=== PATIENT | male | born 1960 | race Caucasian/White ===

== ENCOUNTER → 2017-09-17 | Outpatient (CLI) | payer BC, OTHER ==
[~2017-09-17] MED LIST: ALEN70; ASCO500; ASCO500 PO; ASPI81CH PO; BACL20; BACL20 PO; CALCAVITD PO; CALGLU500; CHOL10002 PO; CLOBET30L TOP; CLOP75 PO; CRANBERRY PO; CVS DISPOSABLE399 ML; CVS DISPOSABLE399 ML PR; Cranberry405 MG PO; DESO.05TCA TOP; ELIQUIS5 MG PO; FLUT.05NI; Flonase 0.05% N16 GM; Flurbiprofen100 MG PO; GABA100 PO; GENTEAL BOTHEYES; GLUCHON; GLUCHON PO; GLUTAMINE; HYDACE5 PO; IBUP400 PO; IPRA.03NI; IPRA.06NI; IPRAOI INH; LEVFLO500 PO; MAGCHL64ER; MANDELAMINE; MANDELAMINE PO; METO10; METO10 PO; MOME.1TC TOP; MOMENI; MULVITMIND; MULVITMIND PO; Multiple Vitam1 EAC1 PO; OMEP20ER PO; OXYB5ER; OXYB5ER PO; PROM25 PO; Protopic100 G1 TP; RANI150 PO; SIME80CH PO; TACROLIMUS TOP; VIT B COMPLEX PO; VIT C PO; [UNRECOGNIZED DRUG - OTHER] PO
[2017-09-17 18:24] LABS: Protein, Urine Random 13.3 mg/dL (0.0-11.9)
[2017-09-17 18:33] LABS: Creatinine, Urine Random 30.9 mg/dL (27.00-270.00)
== END | disposition home or self-care (01) ==
LOC: OLS 15:40 → LAB SHORT 15:40
PROVIDERS: Internal Medicine
DX: I10 Essential (primary) hypertension (principal)
CPT/HCPCS: 82570; 84156

== ENCOUNTER 2018-04-01 16:39 | Inpatient (IN) | payer BC, OTHER ==
[~2018-04-01] VITALS: Ht 175.3 cm; Wt 86.4 kg
[~2018-04-01 16:39] MED LIST changes: +ONE DAILY COMP1 EACH PO; -RANI150 PO; +Zantac150 MG PO
[2018-04-01 17:08] LABS: Source, Urine Catheter
[2018-04-01 17:14] LABS: BASOPHILS ABSOLUTE AUTO 0.03 K/mm3 (0.00-0.23); BASOPHILS PERCENT AUTO 0 % (0-2); EOSINOPHILS PERCENT AUTO 0 % (0-6); Hematocrit 39.2 % (37.0-53.0); Hemoglobin 13.2 g/dL (13.5-17.5); IMMATURE GRAN ABSOLUTE AUTO 0.06 K/mm3 (0.00-0.10); IMMATURE GRAN PERCENT AUTO 1 % (0-1); LYMPHOCYTES ABSOLUTE AUTO 0.14 K/mm3 (0.84-5.20); LYMPHOCYTES PERCENT AUTO 2 % (21-46); MONOCYTES ABSOLUTE AUTO 0.26 K/mm3 (0.16-1.47); MONOCYTES PERCENT AUTO 3 % (4-13); Mean Corpuscular HGB 30.9 pg (26.0-34.0); Mean Corpuscular HGB Conc 33.7 g/dL (31.5-36.5); Mean Corpuscular Volume 92 fL (80-100); NEUTROPHILS ABSOLUTE AUTO 8.42 K/mm3 (1.96-9.15); NEUTROPHILS PERCENT AUTO 95 % (41-73); Platelet Count 132 K/mm3 (150-400); Red Blood Cell Count 4.27 M/mm3 (4.30-5.90); White Blood Cell Count 8.91 K/mm3 (4.00-11.30)
[2018-04-01 17:14] LABS: Appearance, Urine Cloudy (Clear); Bilirubin, Urine Neg (Neg); Blood, Urine 5+ (Neg); Color, Urine Yellow (P-Yellow); Glucose Qualitative, Urine Neg (Neg); Ketones, Urine Neg (Neg); Leukocyte Esterase, Urine 3+ (Neg); Nitrite, Urine Neg (Neg); Protein, Urine 3+ (Neg); Urobilinogen, Urine NORM (Normal)
[2018-04-01 17:26] LABS: Red Blood Cells, Urine 25-50 /hpf (0-2); White Blood Cells, Urine 50-100 /hpf (0-5)
[2018-04-01 17:27] LABS: Bacteria Many /hpf; Hyaline Casts 0-2 /lpf (0-2); Squamous Epithelial Cells Not Seen /hpf (Few)
[2018-04-01 17:33] LABS: Alanine Aminotransfer (ALT/SGP 76 U/L (12-78); Albumin, Blood 3.7 g/dL (3.4-5.0); Albumin/Globulin Ratio 1.1 (0.8-1.8); Alk Phos 102 U/L (50-136); Anion Gap 8 mmol/L (6-16); Aspartate Aminotrans (AST/SGOT 66 U/L (12-37); Bilirubin, Total 0.9 mg/dL (0.1-1.0); Blood Urea Nitrogen 21 mg/dL (8-24); Bun/Creatinine Ratio 26.3 (12.0-20.0); CO2, Blood 25 mmol/L (21-32); Chloride, Blood 101 mmol/L (98-108); Globulin, Blood 3.5 g/dL (2.2-4.0); Glomerular Filtration Rate >60 (60-); Glucose, Blood 121 mg/dL (70-99); Potassium, Blood 4.4 mmol/L (3.5-5.5); Sodium, Blood 134 mmol/L (136-145); Total Protein, Blood 7.2 g/dL (6.4-8.2)
[2018-04-02 04:52] LABS: BASOPHILS ABSOLUTE AUTO 0.02 K/mm3 (0.00-0.23); BASOPHILS PERCENT AUTO 0 % (0-2); EOSINOPHILS ABSOLUTE AUTO 0.01 K/mm3 (0.00-0.68); EOSINOPHILS PERCENT AUTO 0 % (0-6); Hematocrit 36.7 % (37.0-53.0); IMMATURE GRAN ABSOLUTE AUTO 0.03 K/mm3 (0.00-0.10); IMMATURE GRAN PERCENT AUTO 1 % (0-1); LYMPHOCYTES ABSOLUTE AUTO 0.36 K/mm3 (0.84-5.20); LYMPHOCYTES PERCENT AUTO 7 % (21-46); MONOCYTES ABSOLUTE AUTO 0.38 K/mm3 (0.16-1.47); MONOCYTES PERCENT AUTO 7 % (4-13); Mean Corpuscular HGB 29.9 pg (26.0-34.0); Mean Corpuscular HGB Conc 32.7 g/dL (31.5-36.5); Mean Corpuscular Volume 91 fL (80-100); Mean Platelet Volume 10.2 fL (9.1-12.4); NEUTROPHILS ABSOLUTE AUTO 4.64 K/mm3 (1.96-9.15); NEUTROPHILS PERCENT AUTO 85 % (41-73); Platelet Count 133 K/mm3 (150-400); RDW Coefficient Variation 13.1 % (11.7-14.2); RDW Standard Deviation 43.9 fL (35.1-46.3); Red Blood Cell Count 4.02 M/mm3 (4.30-5.90); White Blood Cell Count 5.44 K/mm3 (4.00-11.30)
[2018-04-02 05:05] LABS: Anion Gap 9 mmol/L (6-16); Blood Urea Nitrogen 16 mg/dL (8-24); Bun/Creatinine Ratio 26.8 (12.0-20.0); CO2, Blood 23 mmol/L (21-32); Calcium, Blood 8.2 mg/dL (8.5-10.1); Chloride, Blood 107 mmol/L (98-108); Glomerular Filtration Rate >60 (60-); Glucose, Blood 111 mg/dL (70-99); Potassium, Blood 3.7 mmol/L (3.5-5.5); Sodium, Blood 139 mmol/L (136-145)
[2018-04-04 05:34] LABS: Vancomycin, Trough 15.3 ug/mL (5.0-10.0)
[2018-04-04 13:06] LABS: Source, Urine Catheter
[2018-04-04 13:21] LABS: Bilirubin, Urine Neg (Neg); Blood, Urine 4+ (Neg); Glucose Qualitative, Urine Neg (Neg); Ketones, Urine Neg (Neg); Leukocyte Esterase, Urine 3+ (Neg); Nitrite, Urine Neg (Neg); Protein, Urine 3+ (Neg); Urobilinogen, Urine NORM (Normal)
[2018-04-04 13:42] LABS: Appearance, Urine Cloudy (Clear); Color, Urine Yellow (P-Yellow)
[2018-04-04 13:43] LABS: White Blood Cells, Urine 25-50 /hpf (0-5)
[2018-04-04 13:44] LABS: Bacteria Few /hpf; Squamous Epithelial Cells Few /hpf (Few)
[2018-04-05] MEDS ORDERED: ASPI81CH PO (10:43)
[2018-04-05] MEDS ORDERED: Tylenol325 MG PO (10:44)
[2018-04-05] MEDS ORDERED: LEVO750 PO (10:45)
== END 2018-04-05 13:06 | disposition home or self-care (01) | DRG 698 ==
LOC: ER 16:39 → MEDS 20:33
PROVIDERS: Emergency Medicine; Hospitalist; Internal Medicine
DX: T83.518A Infection and inflammatory reaction due to other urinary catheter, initial encounter (principal); A41.01 Sepsis due to Methicillin susceptible Staphylococcus aureus; R65.20 Severe sepsis without septic shock; G82.50 Quadriplegia, unspecified; N39.0 Urinary tract infection, site not specified; E87.2 Acidosis; E87.1 Hypo-osmolality and hyponatremia; D68.61 Antiphospholipid syndrome; C83.70 Burkitt lymphoma, unspecified site; Z86.73 Personal history of transient ischemic attack (TIA), and cerebral infarction without residual deficits; Z79.01 Long term (current) use of anticoagulants; I10 Essential (primary) hypertension
CPT/HCPCS: 36415; 71046; 80048; 80053; 80202; 81001; 83605; 85025; 87040; 87077; 87086; 87147; 87186; 96374; 96375; 99285-25; J0360; J0692; J0696; J1650; J1956; J3370; J7030; J7050; J7120

== ENCOUNTER → 2018-06-30 | Outpatient (CLI) | payer BC, OTHER ==
[~2018-06-30] MED LIST changes: +LEVO750 PO; +Tylenol325 MG PO
[2018-07-03 12:07] LABS: CREATININE, URINE 38.7 mg/dL (Not Estab.); N-TELO/CREAT. RATIO 24 (0-62); N-TELOPEPTIDE 81 nmol BCE (Not Estab.)
== END | disposition home or self-care (01) ==
LOC: LAB SHORT 15:43 → LAB 15:43 → EDSTATUS 06-29 11:45 → LAB FUT 06-29 11:45
PROVIDERS: Internal Medicine
DX: Z12.5 Encounter for screening for malignant neoplasm of prostate (principal); D64.9 Anemia, unspecified; E55.9 Vitamin D deficiency, unspecified; M81.0 Age-related osteoporosis without current pathological fracture
CPT/HCPCS: 82523; 82570

== ENCOUNTER → 2023-07-21 | Outpatient (CLI) | payer BC, OTHER ==
[2023-07-21 12:05] LABS: Source, Urine Voided
[2023-07-21 13:37] LABS: Appearance, Urine Cloudy (Clear); Bilirubin, Urine Neg (Neg); Blood, Urine 5+ (Neg); Color, Urine Yellow (P-Yellow); Glucose Qualitative, Urine Neg (Neg); Ketones, Urine Neg (Neg); Leukocyte Esterase, Urine 3+ (Neg); Nitrite, Urine Neg (Neg); Protein, Urine 3+ (Neg); Specific Gravity, Urine 1.015 (1.003-1.022); Urobilinogen, Urine 1+ (Normal)
[2023-07-21 13:48] LABS: Bacteria Many /hpf; Red Blood Cells, Urine 50-100 /hpf (0-2); Squamous Epithelial Cells Many /hpf (Few); White Blood Cells, Urine 50-100 /hpf (0-5)
[2023-07-21 13:49] LABS: Amorphous Light (0-Heavy); Mucus Light (0-Heavy); Renal Epithelial Rare /hpf (0-Rare); Transitional Epithelial Cells Few /hpf (0-Rare)
== END ==
LOC: LAB SHORT 12:02 → LAB 12:02
PROVIDERS: Hospitalist
DX: G90.4 Autonomic dysreflexia (principal)
CPT/HCPCS: 81001; 87086; 87205

== ENCOUNTER → 2023-11-18 | Outpatient (CLI) | payer BC, OTHER ==
[2023-11-18 10:56] LABS: Source, Urine Clean Catch
[2023-11-18 12:59] LABS: Appearance, Urine Clear (Clear); Bilirubin, Urine Neg (Neg); Blood, Urine 2+ (Neg); Color, Urine Yellow (P-Yellow); Glucose Qualitative, Urine Neg (Neg); Ketones, Urine Neg (Neg); Leukocyte Esterase, Urine 3+ (Neg); Nitrite, Urine Neg (Neg); Protein, Urine 1+ (Neg); Specific Gravity, Urine 1.005 (1.003-1.022); Urobilinogen, Urine NORM (Normal)
[2023-11-18 13:09] LABS: Bacteria Rare /hpf; Squamous Epithelial Cells Not Seen /hpf (Few)
[2023-11-18 13:10] LABS: Amorphous Mod (0-Heavy); Triple Phosphate Crystals Many /hpf
== END | disposition home or self-care (01) ==
LOC: LAB SHORT 10:54 → LAB 10:54 → LAB FUT 11-16 17:35 → EDSTATUS 11-16 17:35
PROVIDERS: Physician Assistant Medical
DX: N39.0 Urinary tract infection, site not specified (principal)
CPT/HCPCS: 81001; 87086

== ENCOUNTER → 2024-02-27 | Outpatient (CLI) | payer BC, OTHER ==
[2024-03-01 23:23] LABS: CREATININE, URINE - PER VOLUME 83 mg/dL; NTX,URN (NM BCE/MM CREATININE) 32 (21-83)
== END | disposition home or self-care (01) ==
LOC: LAB SHORT 16:20 → LAB 16:20 → EDSTATUS 02-24 12:15 → LAB FUT 02-24 12:15
PROVIDERS: Internal Medicine
DX: Z00.00 Encounter for general adult medical examination without abnormal findings (principal); M81.0 Age-related osteoporosis without current pathological fracture; E55.9 Vitamin D deficiency, unspecified; Z79.899 Other long term (current) drug therapy
CPT/HCPCS: 82523

== ENCOUNTER 2024-03-08 10:20 | Day surgery (SDC) | payer BC, OTHER ==
[~2024-03-08] VITALS: Ht 175.3 cm; Wt 83.9 kg
[~2024-03-08 10:20] MED LIST changes: +Lactated Ringer's 1,000 ML IV ONE
[2024-03-08] MEDS ORDERED: NIFE10 (10:55)
[2024-03-08] MEDS ORDERED: Feosol45 MG (10:56)
[2024-03-08] MEDS ORDERED: BACITRACIN ZIN1 EAC1 (10:57)
[2024-03-08] MEDS ORDERED: ALEVAZOL56.7 G1 (10:58)
[2024-03-08] MEDS ORDERED: Lactated Ringer's 1,000 ML IV ONE (11:28)
[2024-03-08] MEDS ORDERED: propofoL 50 ML IV ONE (11:34)
[2024-03-08] MEDS ORDERED: Glycopyrrolate 0.2 MG/ML 1MLVIAL ONE (11:40)
[2024-03-08] MEDS ORDERED: ePHEDrine Sulfate 50 MG/ML 1ML Injection ONE (11:47)
[2024-03-08 14:26] VITALS: BP 128/90
== END 2024-03-08 12:55 | disposition home or self-care (01) ==
LOC: ORSCSDS 10:20
PROVIDERS: Specialist
PROC: 0DJD8ZZ Inspection of Lower Intestinal Tract, Via Natural or Artificial Opening Endoscopic (ICD-10-PCS; principal; 2024-03-08 11:30)
DX: Z12.11 Encounter for screening for malignant neoplasm of colon (principal); K64.8 Other hemorrhoids; Z86.0101 Personal history of adenomatous and serrated colon polyps; K21.9 Gastro-esophageal reflux disease without esophagitis; G47.33 Obstructive sleep apnea (adult) (pediatric); K75.81 Nonalcoholic steatohepatitis (NASH); G82.50 Quadriplegia, unspecified; C83.7 Burkitt lymphoma; Z79.01 Long term (current) use of anticoagulants; Z79.899 Other long term (current) drug therapy
CPT/HCPCS: J2704; J7120